=== PATIENT | female | born 1955 | race Caucasian/White ===

== ENCOUNTER 2021-06-06 10:47 | Inpatient (IN) | payer OTHER ==
[~2021-06-06] VITALS: Ht 154.9 cm; Wt 96.2 kg
[2021-06-06 12:19] LABS: BASOPHIL 0.1 % (0-2); EOSINOPHIL 0 % (0-7); HCT 34.5 % (37.0-47.0); HGB 11.4 g/dl (12.5-16.0); LYMPHOCYTE 6.4 % (15-48); MCH 28.4 pg (25.0-31.0); MONOCYTE 3.5 % (0-12); MPV 9.1 fL (6.0-9.5); NEUTROPHIL 89.6 % (41-80); NRBC 0; PLT 242 K/uL (150-400); RBC 4.01 M/uL (4.20-5.40); RDW 14.6 % (11.5-14.0)
[2021-06-06 12:32] LABS: INFLUENZA A NAA NEGATIVE (NEGATIVE)
[2021-06-06 13:08] LABS: CORONAVIRUS 2019 SARS-COV-2 POSITIVE (NEGATIVE)
[2021-06-06 13:09] LABS: BUN/CREAT RATIO (CALC) 15.6 RATIO; CREATININE 0.45 mg/dL (0.51-0.95); POTASSIUM 3.8 mmol/L (3.5-5.1)
[2021-06-07] MEDS ORDERED: METFORMIN500 MG/5 M PO (00:15)
[2021-06-07] MEDS ORDERED: PRILOSEC20 MG PO (00:16)
[2021-06-07] MEDS ORDERED: MONTELUKAST SOD10 MG PO (00:17)
[2021-06-07] MEDS ORDERED: COZAAR50 MG PO (00:18)
[2021-06-07] MEDS ORDERED: LASIX20 MG PO (00:18)
[2021-06-07] MEDS ORDERED: SYMBICORT 80-10.2 GM INH (00:19)
[2021-06-07] MEDS ORDERED: SYNTHROID25 MCG PO (00:20)
[2021-06-07] MEDS ORDERED: ALLEGRA ALLERG180 MG PO (00:20)
[2021-06-07] MEDS ORDERED: SPIRIVA18 MCG INH (00:21)
[2021-06-07] MEDS ORDERED: ASPIRIN EC81 MG PO (00:21)
[2021-06-07] MEDS ORDERED: TOPROL XL 25MG25 MG PO (00:22)
[2021-06-07] MEDS ORDERED: DALIRESP500 MCG PO (00:22)
[2021-06-07] MEDS ORDERED: NASACORT16.9 ML INH (00:23)
[2021-06-07] MEDS ORDERED: PLAVIX75 MG PO (00:24)
[2021-06-07] MEDS ORDERED: CRESTOR10 MG PO (00:24)
[2021-06-07 04:37] LABS: BASOPHIL 0 % (0-2); EOSINOPHIL 0 % (0-7); HCT 33.4 % (37.0-47.0); HGB 10.9 g/dl (12.5-16.0); LYMPHOCYTE 22.4 % (15-48); MCH 27.9 pg (25.0-31.0); MCHC 32.6 g/dL (32.0-36.0); MCV 85.4 fL (78.0-100.0); MONOCYTE 6.6 % (0-12); MPV 8.8 fL (6.0-9.5); NEUTROPHIL 70.7 % (41-80); NRBC 0; PLT 249 K/uL (150-400); RBC 3.91 M/uL (4.20-5.40); RDW 14.3 % (11.5-14.0); WBC 5.7 K/uL (4.0-10.5)
[2021-06-07 05:15] LABS: ALBUMIN 2.7 g/dL (3.4-5.0); BILIRUBIN - TOTAL 0.3 mg/dL (0.2-1.0); CREATININE 0.5 mg/dL (0.51-0.95); GLOBULIN (CALCULATION) 3.9 g/dL; TOTAL PROTEIN 6.6 g/dL (6.4-8.2)
[2021-06-09 07:04] LABS: BASOPHIL 0.1 % (0-2); EOSINOPHIL 0.1 % (0-7); HCT 34.3 % (37.0-47.0); LYMPHOCYTE 26.8 % (15-48); MCH 28.1 pg (25.0-31.0); MCHC 32.1 g/dL (32.0-36.0); MCV 87.5 fL (78.0-100.0); MONOCYTE 5.7 % (0-12); MPV 8.5 fL (6.0-9.5); NEUTROPHIL 67.1 % (41-80); NRBC 0; PLT 318 K/uL (150-400); RBC 3.92 M/uL (4.20-5.40); RDW 14.6 % (11.5-14.0); WBC 8.2 K/uL (4.0-10.5)
[2021-06-09 07:32] LABS: BUN/CREAT RATIO (CALC) 17.9 RATIO; CREATININE 0.56 mg/dL (0.51-0.95); POTASSIUM 3.9 mmol/L (3.5-5.1)
[2021-06-10 07:25] LABS: BASOPHIL 0.1 % (0-2); EOSINOPHIL 0.4 % (0-7); HCT 34.8 % (37.0-47.0); HGB 11.2 g/dl (12.5-16.0); LYMPHOCYTE 33.7 % (15-48); MCH 28.1 pg (25.0-31.0); MCHC 32.2 g/dL (32.0-36.0); MCV 87.2 fL (78.0-100.0); MONOCYTE 6.6 % (0-12); MPV 8.4 fL (6.0-9.5); NEUTROPHIL 58.7 % (41-80); NRBC 0; PLT 376 K/uL (150-400); RBC 3.99 M/uL (4.20-5.40); RDW 14.4 % (11.5-14.0)
[2021-06-10 08:25] LABS: BUN/CREAT RATIO (CALC) 18.5 RATIO; CREATININE 0.54 mg/dL (0.51-0.95); POTASSIUM 3.9 mmol/L (3.5-5.1)
--- NOTE | 2021-06-11 11:44 | NUR ---
SPOKE WITH PT VIA PHONE SHE IS IN ISOLATION. PT ADVISED THAT SHE WANTS TO SWITCH OXYGEN COMPANIES. SHE WANTS TO SWITCH FROM LEFT HAND TO [facility]. CONTACTED [facility], WAS ADVISED BY JEFF, THAT PT CANNOT SWITCH COMPANIES SHE HAS NOT HAD OXYGEN HER THE ALLOTED TIME. TC TO PT AND ADVISED HER OF THE OXYGEN SITUATION. SHE WAS IN AGREEMENT TO STAY WITH [facility]. TC TO [facility] SPOKE WITH [facility]. FAXED REQUIRED CLINICALS TO [facility] AT [phone]. THEY WILL DELIVER A PORTABLE TO PT AT THE HOSPITAL. PT HAS HER CONCENTRATOR AT HOME. FAXED ORDER FROM DR. JULIAN FOR CONTINUOUS O2. @ 3L [place].
[2021-06-11] MEDS ORDERED: DOXYCYCLINE MO100 M1 PO (16:32)
[2021-06-11] MEDS ORDERED: MEDROL 4MG DOSEP4 MG PO (16:32)
[2021-06-11] MEDS ORDERED: ONDANSETRON ODT4 MG PO (17:10)
== END 2021-06-11 17:15 | disposition home or self-care (01) | DRG 177 ==
LOC: FER 10:47 → FMS 15:28
PROVIDERS: Internal Medicine; ADMIT Internal Medicine
PROC: XW033E5 Introduction of Remdesivir Anti-infective into Peripheral Vein, Percutaneous Approach, New Technology Group 5 (ICD-10-PCS; principal; 2021-06-06)
PROC: 8E0ZXY6 Isolation (ICD-10-PCS; 2021-06-06)
DX: U07.1 COVID-19 (principal); J12.82 Pneumonia due to coronavirus disease 2019; J96.01 Acute respiratory failure with hypoxia; J15.211 Pneumonia due to Methicillin susceptible Staphylococcus aureus; J84.9 Interstitial pulmonary disease, unspecified; R04.2 Hemoptysis; E87.1 Hypo-osmolality and hyponatremia; I10 Essential (primary) hypertension; E11.9 Type 2 diabetes mellitus without complications; E03.9 Hypothyroidism, unspecified; D50.9 Iron deficiency anemia, unspecified; E78.00 Pure hypercholesterolemia, unspecified; K21.9 Gastro-esophageal reflux disease without esophagitis; I25.10 Atherosclerotic heart disease of native coronary artery without angina pectoris; J30.2 Other seasonal allergic rhinitis; F41.9 Anxiety disorder, unspecified; Z99.81 Dependence on supplemental oxygen; Z95.5 Presence of coronary angioplasty implant and graft; Z90.49 Acquired absence of other specified parts of digestive tract; Z79.82 Long term (current) use of aspirin; Z79.02 Long term (current) use of antithrombotics/antiplatelets; Z79.84 Long term (current) use of oral hypoglycemic drugs; Z79.899 Other long term (current) drug therapy; Z87.01 Personal history of pneumonia (recurrent)
CPT/HCPCS: 36415; 36600; 71045; 71275; 80048; 80053; 80202; 82728; 82803; 83036; 83690; 83880; 84145; 84484; 85025; 87070; 87205; 93005; 94640; 94664; 94762; C9399; J1100; J1650; J2405; J7050; J8540; Q9967; U0002